=== PATIENT | male | born 1980 | race Native Hawaiian/Other Pacific Islander ===

== ENCOUNTER 2021-09-15 09:35 | Outpatient (CLI) | payer OTHER, SELFPAY ==
--- NOTE | 2021-09-15 10:15 | CRLHL7_ITS ---
For Patients: As a result of the Century Cures Act, medical imaging exams and procedure reports are released immediately into your electronic medical record. You may view this report before your referring provider. If you have questions, please contact your health care provider. Indication: Right upper quadrant abdominal pain. Technique: Dedicated thin and thick slab MRCP obtained Comparison: None available Findings: No intra or extrahepatic biliary ductal dilatation. No obvious biliary strictures. No suspicious filling defects within the biliary system. The common bile duct measures 7 mm. Status post cholecystectomy. No pancreatic ductal dilatation. Non cirrhotic liver morphology. No hepatic steatosis. Adrenal glands appear normal. No splenomegaly. No aortic aneurysm. Visualized bowel is nonobstructed. No ascites in the abdomen. No pleural effusions in the lung bases. Bone marrow signal appears unremarkable. Impression: No intra or extrahepatic biliary ductal dilatation. No suspicious biliary strictures or filling defects. Dictated by Herson Barger MD @ 09/16/2021 5:51:19 PM (Electronically Signed)
== END 2021-09-15 09:36 | disposition home or self-care (01) ==
LOC: MRI 09:40
PROVIDERS: Visit Provider Emergency Medicine
DX: R10.11 Right upper quadrant pain (principal)
CPT/HCPCS: 74181